=== PATIENT | female | born 1955 | race Hispanic/Latino ===

== ENCOUNTER 2016-10-29 08:12 | Outpatient (CLI) | payer BC ==
--- NOTE | 2016-10-29 10:09 | Fluoroscopy Report ---
DOUBLE CONTRAST BARIUM ENEMA INDICATION: Incomplete colonoscopy. Colon cancer screening. COMPARISON: 04/22/2009 CT. FINDINGS: Preliminary radiograph demonstrates nonobstructive bowel gas pattern. An air-containing small bowel loop in the right lower quadrant is approximately 2.87 m caliber. Moderate mid to lower lumbar spondylosis. Possible lost opinion. Using fluoroscopic guidance, the entire colon filled in retrograde fashion with barium and air. The colonic caliber and mucosal pattern are normal in appearance. No constricting lesions or fixed intraluminal masses identified. Colon though noted aggregated in the left hemiabdomen with cecum located in the left lower quadrant. Reflux identified into the distal ileum. Numerous air-containing small bowel loops noted in the right hemiabdomen. CONCLUSION: Malrotation; otherwise unremarkable air contrast barium enema. Thank you for the opportunity to participate in this patient's care.
== END 2016-10-29 08:13 | disposition home or self-care (01) ==
LOC: FLUORO 08:12
PROVIDERS: ATTEND Internal Medicine Gastroenterology
DX: Z12.11 Encounter for screening for malignant neoplasm of colon (principal); M47.896 Other spondylosis, lumbar region
CPT/HCPCS: 74280

== ENCOUNTER 2020-01-03 11:20 | Outpatient (CLI) | payer BC ==
--- NOTE | 2020-01-03 12:57 | XRay Report ---
RIGHT HIP 2 VIEWS INDICATION: ACUTE RIGHT SIDED LOW BACK PAIN M54.41. Right sciatica. COMPARISON: None. IMPRESSION: No acute osseous or soft tissue abnormality. No significant DJD. LUMBOSACRAL SPINE 5 VIEWS INDICATION: ACUTE RIGHT SIDED LOW BACK PAIN M54.41. COMPARISON: None. IMPRESSION: There is 5 mm anterolisthesis of L4 with respect to L5. The remaining vertebra are michael l in alignment. There is mild to moderate diffuse disc space narrowing which is most pronounced at L5 -S1. Moderate diffuse facet arthropathy with hypertrophic changes. Multilevel neural foraminal narrow ing is suspected on the oblique images. L4-5 appears to be the most affected level. No acute osseous or soft tissue abnormality. Signer Name: Luis M Tomlin Jr, MD Signed: 01/03/2020 12:52 PM Workstation Name: [id number]
== END 2020-01-03 11:21 | disposition home or self-care (01) ==
LOC: SPVIMAG 11:20
PROVIDERS: ATTEND Internal Medicine
DX: M48.07 Spinal stenosis, lumbosacral region (principal); M47.817 Spondylosis without myelopathy or radiculopathy, lumbosacral region; M54.41 Lumbago with sciatica, right side; M43.16 Spondylolisthesis, lumbar region
CPT/HCPCS: 72110